=== PATIENT | male | born 1950 | race Asian ===

== ENCOUNTER 2024-08-10 18:56 | Emergency (ER) | payer OTHER, SELFPAY ==
[2024-08-10 19:14] VITALS: BP 193/88; BP 194/99; PULSE 58; RESP 16; TEMP 36.7; O2SAT 98; BMI 21.2
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
[2024-08-10] MEDS: IBUPROFEN TAB 400 MG TABLET 800 MG PO (19:28)
[2024-08-10 19:47] VITALS: BP 194/99; PULSE 58
[2024-08-10] MEDS: cloNIDine HCL 0.1 MG TABLET PO ×2 (19:47→21:03)
[2024-08-10 19:52] VITALS: BP 201/88
[2024-08-10 20:35] VITALS: BP 181/85
[2024-08-10 21:03] VITALS: BP 181/85; PULSE 58
[2024-08-10 21:51] VITALS: BP 166/80
== END 2024-08-10 21:55 ==
PROVIDERS: Emergency Provider Emergency Medicine
DX: Z02.89 Encounter for other administrative examinations (principal); S40.012A Contusion of left shoulder, initial encounter; V89.2XXA Person injured in unspecified motor-vehicle accident, traffic, initial encounter
CPT/HCPCS: 99282; A9270

== ENCOUNTER → 2024-08-18 | Outpatient (CLI) | payer OTHER, SELFPAY ==
[2024-08-18 11:28] LABS: Basophils # (Auto) 0.1 Thou/mm3 (0.0-0.2); Basophils % (Auto) 2 % (0-2.5); Eosinophils % (Auto) 1 % (0-10); Hematocrit 38.1 % (41.0-53.0); Hemoglobin 12.9 g/dL (13.5-16.0); Immature Granulocytes % (Auto) 0 % (0-0); Immature Granulocytes Auto 0.01 Thou/mm3 (0.00-0.00); Lymphocytes # (Auto) 2.4 Thou/mm3 (1.0-4.8); Lymphocytes % (Auto) 45 % (10-50); Mean Corpuscular HGB Conc 33.9 g/dl (31.0-37.0); Mean Corpuscular Hemoglobin 33.1 pg (25.0-35.0); Mean Corpuscular Volume 98 fL (80-100); Monocytes # (Auto) 0.6 Thou/mm3 (0.0-0.8); Monocytes % (Auto) 11 % (0-12); Neutrophils # (Auto) 2.2 Thou/mm3 (1.8-7.7); Neutrophils % (Auto) 42 % (37-80); Nucleated Red Blood Cell % 0 /100 WBC (0); Platelet Count 306 Thou/mm3 (140-440); RDW Standard Deviation 45.5 fL (35.1-43.9); White Blood Count 5.3 Thou/mm3 (3.8-10.6)
[2024-08-18 11:44] LABS: Alanine Aminotransferase 28 U/L (10-49); Albumin/Globulin Ratio 1.4 (1.2-2.2); Alkaline Phosphatase 79 U/L (46-116); Anion Gap 7 (7-16); Aspartate Amino Transferase 28 U/L (0-34); BUN/Creatinine Ratio 26 Ratio (12-20); Bilirubin,Total 2.1 mg/dL (0.3-1.2); Blood Urea Nitrogen 21 mg/dL (9-23); Calcium 9.2 mg/dL (8.3-10.6); Calcium (Corrected) 9.2 mg/dL (8.5-10.1); Carbon Dioxide 25.1 mMol/L (20.0-31.0); Cardiac Risk Estimate 3.8 RATIO (4.0-6.7); Chloride 106 mMol/L (98-107); Cholesterol 188 mg/dL (132-200); Creatinine (Component) 0.8 mg/dL (0.6-1.3); Globulin 2.9 gm/dL (2.3-3.5); Glucose 94 mg/dL (74-106); HDL Cholesterol 50 mg/dL (40-60); LDL Cholesterol,Calculated 109 mg/dL (0-130); Osmolality,Calculated 278 (275-295); Potassium 4.4 mMol/L (3.4-5.1); Sodium 138 mMol/L (136-145); Total Protein 6.9 gm/dL (5.7-8.2); Triglycerides 146 mg/dL (30-150); eGFR > 60 See Note
[2024-08-18 11:49] LABS: Prostate Specific Antigen 0.87 ng/mL (0-4.00)
[2024-08-18 11:51] LABS: Collection Type, Urine Clean Catch; Squamous Epithelial Cell,Urine 0 /hpf (0-5)
[2024-08-18 12:43] LABS: Bilirubin,Urine Negative (Negative); Blood,Urine 2+ (Negative); Clarity,Urine Clear (Clear/Hazy); Color,Urine Lt-Yellow (Lt Yel-Yel); Glucose, Urine Negative (Negative); Ketones,Urine Negative (Negative); Leukocyte Esterase,Urine Negative (Negative); Nitrite,Urine Negative (Negative); PH,Urine 5.5 (5.0-7.0); Protein,Urine Trace (Neg - Trace); RBC,Urine 2 /hpf (0-3); Specific Gravity,Urine 1.021 (1.001-1.035); Urobilinogen,Urine Negative mg/dL (0.0-1.0); WBC,Urine 1 /hpf (0-5)
== END | disposition home or self-care (01) ==
PROVIDERS: PCP Internal Medicine; Referring Provider Internal Medicine; Visit Provider Internal Medicine
DX: I10 Essential (primary) hypertension (principal)
CPT/HCPCS: 36415; 80053; 80061; 81001; 84153; 85025

== ENCOUNTER → 2024-08-25 | Outpatient (CLI) | payer OTHER, SELFPAY ==
[2024-08-25 11:19] LABS: OBS Performed By LAB; OBS QC OK? Yes
[2024-08-25 12:32] LABS: OBS Developer Lot # 1-24-551749; Occult Blood, Stool Negative (Negative); Occult Blood, Stool #2 Negative (Negative); Occult Blood, Stool #3 Positive (Negative)
== END | disposition home or self-care (01) ==
LOC: COPL 10:58
PROVIDERS: PCP Internal Medicine; Referring Provider Internal Medicine; Visit Provider Internal Medicine
DX: Z00.00 Encounter for general adult medical examination without abnormal findings (principal); I10 Essential (primary) hypertension
CPT/HCPCS: 82270

== ENCOUNTER → 2024-09-22 | Outpatient (CLI) | payer OTHER, SELFPAY ==
--- NOTE | 2024-09-22 11:03 | XR_ITS ---
Examination: Shoulder,left, 3 views Technique: Shoulder AP internal rotation, AP external rotation, Y view shoulder, 3 views Exam date and time :September 22, 2024 1144 hours INDICATIONS: Left shoulder pain beginning one month ago FINDINGS: Moderate narrowing glenohumeral joint No shoulder fracture or dislocation IMPRESSION: Moderate narrowing left glenohumeral joint
== END | disposition home or self-care (01) ==
PROVIDERS: PCP Internal Medicine; Referring Provider Internal Medicine; Visit Provider Internal Medicine
DX: M25.812 Other specified joint disorders, left shoulder (principal)
CPT/HCPCS: 73030

== ENCOUNTER → 2024-10-06 | Outpatient (CLI) | payer OTHER, SELFPAY ==
[2024-10-06 08:58] LABS: Blood Urea Nitrogen 17 mg/dL (9-23); eGFR > 60 See Note
== END | disposition home or self-care (01) ==
LOC: COPL 07:09
PROVIDERS: PCP Internal Medicine; Referring Provider Surgery Vascular Surgery; Visit Provider Surgery Vascular Surgery
DX: I71.43 Infrarenal abdominal aortic aneurysm, without rupture (principal); I73.9 Peripheral vascular disease, unspecified
CPT/HCPCS: 36415; 82565; 84520

== ENCOUNTER → 2024-10-13 | Outpatient (CLI) | payer OTHER, SELFPAY ==
--- NOTE | 2024-10-13 15:00 | XR_ITS ---
Examination: CTA abdomen, with intravenous contrast. CTA pelvis, with intravenous contrast. 2-D sagittal and coronal reconstructions. 3-D reconstructions. Date and time of exam: October 13, 2024 1629 hrs. Indications: Infrarenal abdominal aortic aneurysm, 4.4 x 4.[address] angiogram abdomen and pelvis March 24, 2024 CTDI vol (mgy) 12.7 DLP (MGycm) 292 Technique: Multiple CTA images, 2.0 mm slice thickness, obtained chest, abdomen, pelvis, with the high-resolution 64 slice scanner. 100 cc Isovue-370 is administered intravenously. Sagittal and coronal 2-D reconstructions are obtained. 3-D reconstructions, angiographic images are obtained. 3-D postprocessing, including vascular maximum intensity projections. Low dose protocols were performed. One or more of the following dose reduction techniques were used; automated exposure control, adjustment of the mA and/or KV according to patient size, use of iterative reconstruction technique. Findings: Atelectasis in the right middle lobe No focal liver or splenic lesion No gallstones No pancreatic or adrenal mass No hydronephrosis Patent aortoiliac stent in Infrarenal abdominal aortic aneurysm AP dimension 4.4 cm mediolateral dimension 4.5 cm cephalad caudad dimension 7.3 cm No common iliac artery stent AP dimension 16 mm Patent external iliac common femoral arteries Impression: Infrarenal abdominal aorta transverse dimension 4.4 x 4.5 cm compared with 4.4 x 4.3 cm on March 24, 2024, cephalad caudad dimension 7.3 cm compared with 7.2 cm on February 26, 2024
== END | disposition home or self-care (01) ==
LOC: SCAT 14:38
PROVIDERS: PCP Internal Medicine; Referring Provider Surgery Vascular Surgery; Visit Provider Surgery Vascular Surgery
DX: I71.43 Infrarenal abdominal aortic aneurysm, without rupture (principal); I73.9 Peripheral vascular disease, unspecified
CPT/HCPCS: 74174; A4649; Q9967

== ENCOUNTER → 2025-01-13 | Outpatient (CLI) | payer OTHER, SELFPAY ==
[2025-01-13 11:37] LABS: Alanine Aminotransferase 20 U/L (10-49); Albumin, Serum 4.2 gm/dL (3.4-4.8); Alkaline Phosphatase 83 U/L (46-116); Aspartate Amino Transferase 23 U/L (0-34); Bilirubin,Direct 0.3 mg/dL (0.0-0.3); Bilirubin,Total 0.9 mg/dL (0.3-1.2); Cardiac Risk Estimate 3.4 RATIO (4.0-6.7); Cholesterol 165 mg/dL (132-200); HDL Cholesterol 49 mg/dL (40-60); LDL Cholesterol,Calculated 90 mg/dL (0-130); Prostate Specific Antigen 0.79 ng/mL (0-4.00); Total Protein 7.3 gm/dL (5.7-8.2); Triglycerides 129 mg/dL (30-150)
== END | disposition home or self-care (01) ==
LOC: COPL 09:55
PROVIDERS: PCP Internal Medicine; Referring Provider Internal Medicine; Visit Provider Internal Medicine
DX: E78.2 Mixed hyperlipidemia (principal); I10 Essential (primary) hypertension
CPT/HCPCS: 36415; 80061; 80076; 84153

== ENCOUNTER → 2025-06-22 | Outpatient (CLI) | payer OTHER, SELFPAY ==
[2025-06-22 14:56] LABS: Blood Urea Nitrogen 19 mg/dL (9-23); Creatinine (Component) 1.1 mg/dL (0.6-1.3); eGFR > 60 See Note
== END | disposition home or self-care (01) ==
LOC: COPL 13:28
PROVIDERS: PCP Internal Medicine; Referring Provider Surgery Vascular Surgery; Visit Provider Surgery Vascular Surgery
DX: I70.213 Atherosclerosis of native arteries of extremities with intermittent claudication, bilateral legs (principal)
CPT/HCPCS: 36415; 82565; 84520